=== PATIENT | female | born 1980 | race African-American/Black ===

== ENCOUNTER 2020-04-01 22:38 | Emergency (ER) | payer OTHER ==
[~2020-04-01] VITALS: Ht 160 cm; Wt 72.7 kg
[~2020-04-01 22:38] MED LIST: FLOVENT 220MCG7.9 GM IH; NO HOME MEDS; NORCO 325 MG-51 TAB PO; PHENERGAN 25 TA25 MG PO; XOPENEX HF0.045 MG/A IH; ZYRTEC 10MG10 MG PO
[2020-04-01 23:58] VITALS: BP 114/67; PULSE 76; TEMP 98.1
== END 2020-04-01 23:53 | disposition home or self-care (01) ==
LOC: COL.ER 22:38
DX: S62.306A Unspecified fracture of fifth metacarpal bone, right hand, initial encounter for closed fracture (principal); Z86.73 Personal history of transient ischemic attack (TIA), and cerebral infarction without residual deficits; W21.07XA Struck by softball, initial encounter; Y93.64 Activity, baseball
CPT/HCPCS: Q4021

== ENCOUNTER 2020-11-12 00:21 | Emergency (ER) | payer OTHER ==
[~2020-11-12] VITALS: Ht 160 cm; Wt 68.2 kg
[2020-11-12 00:25] VITALS: TEMP 98.1
[2020-11-12 01:03] VITALS: BP 120/81; PULSE 89
== END 2020-11-12 01:03 | disposition home or self-care (01) ==
LOC: COL.ER 00:21
DX: M79.644 Pain in right finger(s) (principal); F17.210 Nicotine dependence, cigarettes, uncomplicated; Z88.0 Allergy status to penicillin; Z88.1 Allergy status to other antibiotic agents; Z91.040 Latex allergy status; Z88.6 Allergy status to analgesic agent; W21.07XA Struck by softball, initial encounter; Y93.64 Activity, baseball

== ENCOUNTER 2020-11-28 12:26 | Emergency (ER) | payer OTHER ==
[~2020-11-28] VITALS: Ht 160 cm; Wt 65.9 kg
[2020-11-28 12:34] VITALS: TEMP 96.9
[2020-11-28 13:06] LABS: HEMATOCRIT 46.3 % (37.0-47.0); HEMOGLOBIN 15.2 g/dl (12.5-16.0); MEAN CELL VOLUME 95 fl (80.0-100.0); MEAN CORPUSCULAR HEMOGLOBIN 31 pg (27.0-31.0); MEAN CORPUSCULAR HGB CONC 33 g/dl (33.0-37.0); MEAN PLATELET VOLUME 10.6 fl (7.4-10.4); PLATELET COUNT 250 K/mm3 (130-400); RED BLOOD COUNT 4.89 M/mm3 (4.10-5.30); REDCELL DISTRIBUTION WIDTH-CV 13.2 % (11.5-14.5)
[2020-11-28 13:22] LABS: ALBUMIN 4.9 gm/dL (3.5-5.0); BILIRUBIN,TOTAL 0.4 mg/dL (0.0-1.0); C-REACTIVE PROTEIN 0.8 mg/dL (0.0-0.9); CALCIUM 9.8 mg/dL (8.4-10.2); CREATININE, serum 0.69 (0.52-1.25); POTASSIUM 3.9 mmol/L (3.4-5.0); TOTAL PROTEIN 9.8 gm/dL (6.4-8.2)
[2020-11-28 13:28] LABS: BAND 23 % (0-10); LYMPHOCYTE 2 % (20.0-51.0); NEUTROPHILS 73 % (42.0-75.2); PLATELET ESTIMATE NORMAL (NORMAL)
[2020-11-28 14:23] LABS: COLLECTION METHOD CLEAN CATCH
[2020-11-28 14:42] LABS: MUCOUS Present /lpf; PH 5 (5-8); SQUAMOUS EPITHELIAL 0-2 /hpf; URINE APPEARANCE Hazy; URINE BACTERIA None Seen /hpf; URINE BILIRUBIN Negative (NEGATIVE); URINE BLOOD 2+ (NEGATIVE); URINE COLOR Yellow; URINE GLUCOSE Negative (NEGATIVE); URINE KETONE Negative (NEGATIVE); URINE LEUKOCYTE ESTERASE Negative (NEGATIVE); URINE NITRATE Negative (NEGATIVE); URINE PROTEIN(semi-quant) 1+ (NEGATIVE); URINE UROBILINOGEN Negative (NEGATIVE)
[2020-11-28] MEDS ORDERED: ZOFRAN ODT4 MG PO (15:30)
[2020-11-28 15:43] VITALS: BP 118/81; PULSE 89
[2020-11-28 15:48] LABS: CLOSTRIDIUM DIFF A/B POS; CLOSTRIDIUM DIFF A/B INTERP Toxigenic C.diff POS
[2020-11-28] MEDS ORDERED: FLAGYL500 MG PO (16:04)
== END 2020-11-28 16:09 | disposition home or self-care (01) ==
LOC: COL.ER 12:26
PROVIDERS: Emergency Medicine; Nurse Practitioner
DX: A04.72 Enterocolitis due to Clostridium difficile, not specified as recurrent (principal); F17.210 Nicotine dependence, cigarettes, uncomplicated; Z88.0 Allergy status to penicillin; Z88.1 Allergy status to other antibiotic agents; Z88.8 Allergy status to other drugs, medicaments and biological substances
CPT/HCPCS: J2405; J3010; J7030

== ENCOUNTER 2024-02-16 23:35 | Emergency (ER) | payer OTHER ==
[~2024-02-16] VITALS: Ht 160 cm; Wt 68.2 kg
[~2024-02-16 23:35] MED LIST changes: +FLAGYL500 MG PO; +ZOFRAN ODT4 MG PO
[2024-02-17] VITALS: BP 116/81; TEMP 97.4
[2024-02-17 01:56] VITALS: PULSE 80
== END 2024-02-17 01:57 | disposition home or self-care (01) ==
LOC: COL.ER 23:35
DX: S60.212A Contusion of left wrist, initial encounter (principal); Z91.040 Latex allergy status; W21.07XA Struck by softball, initial encounter; Y93.64 Activity, baseball